=== PATIENT | male | born 1985 | race Caucasian/White ===

== ENCOUNTER 2018-07-30 10:45 | Inpatient (IN) | payer OTHER ==
[2018-07-30 11:16] VITALS: BMI 23.6
--- NOTE | 2018-07-30 16:07 | HP ---
"COWS - Scale Resting Pulse: 0= OK 80 or Below Sweatin= Chills/Flushing Restless Observation: 3= Extraneous Movement Pupil Size: 1= Pupils >than Normal Bone or Joint Aches: 2= Severe Diffuse Aches Runny Nose/ Eye Tearin= Nasal Congestion GI Upset > 30mins: 0= None Tremor Observation: 2= Slight Tremor Visible Yawning Observation: 1= 1-2x During Session Anxiety or Irritability: 1=Feels Anxious/Irritable Goose Flesh Skin: 0=Smooth Skin COWS Score: 12 CIWA Score - Admission Criteria OASAS Guidelines: Admission for Medically Managed Detox: Requires at least one of the followin. CIWA greater than 12 2. Seizures within the past 24 hours 3. Delirium tremens within the past 24 hours 4. Hallucinations within the past 24 hours 5. Acute intervention needed for co occurring medical disorder 6. Acute intervention needed for co occurring psychiatric disorder 7. Severe withdrawal that cannot be handled at a lower level of care (continued vomiting, continued diarrhea, abnormal vital signs) requiring intravenous medication and/or fluids 8. Admission [facility] Allergies/Adverse Reactions: Allergies Allergy/AdvReac Type Severity Reaction Status Date / Time No Known Allergies Allergy Verified 07/30/18 15:48 History of Present Illness: pt here requesting detox from opiate use , reports Vicodin since age 22 , had rx from the dentist for wisdom teeth extraction , then started illicit use of pills( opiates) , then heroin since age 22 , IVDU in [place] , needles from the pharmacy , denies sharing, + re-using sometimes, denies abscess , OD x 2 , most recently 07/27/18 , Narcan by EMS at his home ( lives w/family , mother called 911) , was taken to [facility] , reports use since d/c on the same day , currently attending out pt program in [place] since April 2018 , sent there by parole for drug-related charges , incarcerated x 23 months, on parole until 2020 . Current daily use of heroin : 1 bundle/day , latest use this morning, current symptoms as above . . Reports latest taken Suboxone 1 week ago, has films at home , reports has 1 full box , does not use consistently. detox x 2 , program > 10 , rehab x 4-5 [facility] : 2016 at [facility] , MDD 100 mg q d fentanyl - denies use . tobacco : 1 ppd PMHx : denies PSHX : denies Psych hx : ocd, depression , anxiety . Denies SI / HI Meds : see list . SHx : as above , family supportive of pt's recovery , pt reports he is unemployed . Search Terms: piedad herrera, 1985 Search Date: 07/30/2018 04:09:47 PM The Drug Utilization Report below displays all of the controlled substance prescriptions, if any, that your patient has filled in the last twelve months. The information displayed on this report is compiled from pharmacy submissions to the Department, and accurately reflects the information as submitted by the pharmacies. This report was requested by: Марина Fierro | Reference #: [id number] Others' Prescriptions Patient Name: Piedad Herrera Date: 1985 Address: [address] [place] [address] Sex: Male Rx Written Rx Dispensed Drug Quantity Days Supply Prescriber Name 07/15/2018 07/21/2018 clonazepam 0.5 mg tablet 60 30 [place], [place] 07/15/2018 07/15/2018 suboxone 8 mg-2 mg sl film 60 30 [place], [place]ia 07/01/2018 07/01/2018 suboxone 8 mg-2 mg sl film 28 14 [place], [place]ia 06/24/2018 06/24/2018 clonazepam 0.5 mg tablet 60 30 [place], [place] 06/24/2018 06/24/2018 suboxone 8 mg-2 mg sl film 14 7 [place], [place] 06/17/2018 06/17/2018 suboxone 8 mg-2 mg sl film 14 7 [place], [place] 05/27/2018 05/27/2018 clonazepam 0.5 mg tablet 60 30 [place], [place] 05/04/2018 05/04/2018 hydrocodone-acetaminophen 5-325 mg tablet 12 2 Bryce Negro [facility] - Ebola screening Have you traveled outside of the country in the last 21 days: No Have you had contact with anyone from an Ebola affected area: No Have you been sick,other than usual withdrawal symptoms: No Do you have a fever: No - Review of Systems Constitutional: No Symptoms Reported EENT: reports: No Symptoms Reported Respiratory: reports: No Symptoms reported Cardiac: reports: No Symptoms Reported GI: reports: No Symptoms Reported : reports: No Symptoms Reported Musculoskeletal: reports: No Symptoms Reported Integumentary: reports: No Symptoms Reported Neuro: reports: No Symptoms reported Psychiatric: reports: Orientated x3 Patient History - Patient Medical History Hx Asthma: No Hx Chronic Obstructive Pulmonary Disease (COPD): No Hx Cardiac Disorders: No Hx Hypertension: No Hx Seizures: No Hx Diabetes: No Hx Gastrointestinal Disorders: No Hx Genitourinary Disorders: No Hx Sexually Transmitted Disorders: No Hx Renal Disease (ESRD): No Hx Depression: Yes - Patient Surgical History Past Surgical History: No - PPD History Previous Implant?: Yes Documented Results: Negative w/o proof Implanted On Prior [facility] Admission?: No - Reproductive History Patient : No - Smoking Cessation Smoking history: Current every day smoker Have you smoked in the past 12 months: Yes Aproximately how many cigarettes per day: 20 Hx Chewing Tobacco Use: No Initiated information on smoking cessation: No - Substances Abused Heroin Route: Injection Frequency: Daily Amount used: 1 bundle Age of first use: 22 Date of Last Use: 07/30/18 Family Disease History - Family Disease History Family History: Denies Other Family History: no children Admission Physical Exam BHS - Vital Signs Vital Signs: Vital Signs - 24 hr 07/30/18 11:13 Temperature 98.4 F Pulse Rate 77 Respiratory 18 Rate Blood Pressure 114/66 - Physical General Appearance: Yes: No Apparent Distress HEENTM: Yes: EOMI, Hearing grossly Normal, Normocephalic, Normal Voice Respiratory: Yes: Chest Non-Tender, Lungs Clear, Normal Breath Sounds Neck: Yes: No masses,lesions,Nodules, Trachea in good position Cardiology: Yes: Regular Rhythm, Regular Rate, S1, S2 Abdominal: Yes: Non Tender, Soft Genitourinary: Yes: Within Normal Limits Back: Yes: Normal Inspection Musculoskeletal: Yes: Gait Steady Extremities: Yes: Non-Tender, Tremors Neurological: Yes: Fully Oriented, Alert, Motor Strength 5/5 Integumentary: Yes: Normal Color, Erythema (dorsum of hands , dry sckin w/ small excopriation dorsum of right hand between 2nd and 3rd MC reports OCD and washing hands multiple times throughout the day) - Diagnostic (1) Opiate dependence Current Visit: Yes Status: Acute Qualifiers: Substance use status: uncomplicated Qualified Code(s): F11.20 - Opioid dependence, uncomplicated (2) Nicotine dependence Current Visit: Yes Status: Chronic Qualifiers: Nicotine product type: cigarettes BHS Breath Alcohol Content Breath Alcohol Content: 0 Urine Drug Screen - Results Drug Screen Negative: No Urine Drug Screen Results: OPI-Opiates, FEN-Fentanyl Inpatient Rehab Admission - Rehab Decision to Admit Inpatient rehab admission?: No"
[2018-07-30] MEDS ORDERED: IBUPROFEN 400 MG TABLET (FP) PO PRN (18:29)
[2018-07-30] MEDS ORDERED: MELATONIN 5 MG TABLETS PO PRN (18:29)
[2018-07-30] MEDS ORDERED: METHOCARBAMOL 500 MG TABLET PO PRN (18:29)
[2018-07-30] MEDS ORDERED: MAGNESIUM HYDROX 2400MG/30ML ORAL SUSPENSION 30 ML CUP PO PRN (18:29)
[2018-07-30] MEDS ORDERED: DICYCLOMINE HCL 10 MG CAPSULE PO PRN (18:29)
[2018-07-30] MEDS ORDERED: NICOTINE POLACRILEX 2 MG GUM BUC PRN (18:29)
[2018-07-30] MEDS ORDERED: MAGNESIUM CITRATE 300 ML BOTTLE PO PRN (18:29)
[2018-07-30] MEDS ORDERED: ACETAMINOPHEN 325 MG TABLET (FP) PO PRN ×2 (18:29)
[2018-07-30] MEDS ORDERED: MENTHOL/PHENOL 1 EACH UD MM PRN (18:29)
[2018-07-30] MEDS ORDERED: MAG HYDROX/AL HYDROX/SIMETH 30 ML UNIT-DOSE CUP PO PRN (18:29)
[2018-07-30] MEDS ORDERED: cloNIDine HCL 0.1 MG TABLET PO PRN (18:29)
[2018-07-30] MEDS: THIAMINE HCL 100 MG TABLET (FP) PO SCH (22:30)
[2018-07-30] MEDS ORDERED: METHADONE HCL 10 MG TABLET (FOR DETOX USE ONLY) PO ONE (23:00)
[2018-07-31] MEDS ORDERED: METHADONE HCL 5 MG TABLET (FOR DETOX USE ONLY) PO ONE (10:00)
[2018-07-31] MEDS: PRENATAL VITAMINS W/ FOLIC ACID TABLET (FP) PO SCH (10:32)
[2018-07-31 11:26] LABS: HEMATOCRIT 42.7 % (35.4-49); HEMOGLOBIN 15.1 GM/dL (11.7-16.9); MCHC 35.3 g/dl (32.0-35.9); MEAN CELL VOLUME 85.2 fl (80-96); MEAN PLT VOLUME 8.6 fl (7.5-11.1); PLATELET COUNT 288 K/MM3 (134-434); RBC 5.01 M/mm3 (4.00-5.60); RDW 13.9 % (11.9-15.9)
[2018-07-31 11:55] LABS: ALBUMIN 3.8 g/dl (3.4-5.0); ALK PHOS 95 U/L (45-117); ANION GAP 7 MMOL/L (8-16); BILIRUBIN,TOTAL 0.4 mg/dL (0.2-1); BLOOD UREA NITROGEN 10 mg/dL (7-18); CALCIUM 9.1 mg/dL (8.5-10.1); CHLORIDE 106 mmol/L (98-107); CO2 27 mmol/L (21-32); CREATININE 0.7 mg/dL (0.55-1.3); GLUCOSE,RANDOM 93 mg/dL (74-106); POTASSIUM 4.4 mmol/L (3.5-5.1); SGOT/AST 10 U/L (15-37); SGPT/ALT 19 U/L (13-61); SODIUM 140 mmol/L (136-145); TOT PROT 6.8 g/dl (6.4-8.2)
--- NOTE | 2018-07-31 12:25 | PN ---
S COWS - Scale Resting Pulse: 0= OK 80 or Below Sweatin= Chills/Flushing Restless Observation: 1= Difficult to Sit Still Pupil Size: 1= Pupils >than Normal Bone or Joint Aches: 2= Severe Diffuse Aches Runny Nose/ Eye Tearin= Runny Nose/Eyes GI Upset > 30mins: 2= Nausea/Diarrhea Tremor Observation of Outstretched Hands: 2= Slight Tremor Visible Yawning Observation: 1= 1-2x During Session Anxiety or Irritability: 2=Irritable/Anxious Goose Flesh Skin: 0=Smooth Skin COWS Score: 14 S Progress Note (SOAP) Subjective: alert,irritable,anxious,interrupted sleep,tremor,pain in the body and back Objective: 07/31/18 12:24 Vital Signs Temperature 97.9 F 07/31/18 09:35 Pulse Rate 77 07/31/18 09:35 Respiratory Rate 18 07/31/18 09:35 Blood Pressure 126/60 07/31/18 09:35 O2 Sat by Pulse Oximetry (%) Laboratory Last Values WBC 5.0 K/mm3 (4.0-10.0) 07/31/18 07:00 RBC 5.01 M/mm3 (4.00-5.60) 07/31/18 07:00 Hgb 15.1 GM/dL (11.7-16.9) 07/31/18 07:00 Hct 42.7 % (35.4-49) 07/31/18 07:00 MCV 85.2 fl (80-96) 07/31/18 07:00 MCH 30.0 pg (25.7-33.7) 07/31/18 07:00 MCHC 35.3 g/dl (32.0-35.9) 07/31/18 07:00 RDW 13.9 % (11.9-15.9) 07/31/18 07:00 Plt Count 288 K/MM3 (134-434) 07/31/18 07:00 MPV 8.6 fl (7.5-11.1) 07/31/18 07:00 Sodium 140 mmol/L (136-145) 07/31/18 07:00 Potassium 4.4 mmol/L (3.5-5.1) 07/31/18 07:00 Chloride 106 mmol/L (98-107) 07/31/18 07:00 Carbon Dioxide 27 mmol/L (21-32) 07/31/18 07:00 Anion Gap 7 MMOL/L (8-16) L 07/31/18 07:00 BUN 10 mg/dL (7-18) 07/31/18 07:00 Creatinine 0.7 mg/dL (0.55-1.3) 07/31/18 07:00 Creat Clearance w eGFR 132.41 (>60) 07/31/18 07:00 Random Glucose 93 mg/dL (74-106) 07/31/18 07:00 Calcium 9.1 mg/dL (8.5-10.1) 07/31/18 07:00 Total Bilirubin 0.4 mg/dL (0.2-1) 07/31/18 07:00 AST 10 U/L (15-37) L 07/31/18 07:00 ALT 19 U/L (13-61) 07/31/18 07:00 Alkaline Phosphatase 95 U/L (45-117) 07/31/18 07:00 Total Protein 6.8 g/dl (6.4-8.2) 07/31/18 07:00 Albumin 3.8 g/dl (3.4-5.0) 07/31/18 07:00 RPR Titer Nonreactive (NONREACTIVE) 07/31/18 07:00 HIV 1&2 Antibody Screen Negative 07/31/18 07:00 HIV P24 Antigen Negative 07/31/18 07:00 Assessment: 07/31/18 12:24 withdrawal symptom Plan: continue detox
[2018-07-31] MEDS: THIAMINE HCL 100 MG TABLET (FP) PO SCH (22:45)
[2018-08-01] MEDS ORDERED: METHADONE HCL 10 MG TABLET (FOR DETOX USE ONLY) PO ONE (10:00)
[2018-08-01] MEDS: PRENATAL VITAMINS W/ FOLIC ACID TABLET (FP) PO SCH (11:25)
--- NOTE | 2018-08-01 13:00 | PN ---
BHS COWS - Scale Resting Pulse: 0= NC 80 or Below Sweatin=Flushed/Facial Moisture Restless Observation: 0= Sits Still Pupil Size: 0= Normal to Room Light Bone or Joint Aches: 2= Severe Diffuse Aches Runny Nose/ Eye Tearin= Nasal Congestion GI Upset > 30mins: 0= None Tremor Observation of Outstretched Hands: 2= Slight Tremor Visible Yawning Observation: 1= 1-2x During Session Anxiety or Irritability: 2=Irritable/Anxious Goose Flesh Skin: 0=Smooth Skin COWS Score: 10 [facility] Progress Note (SOAP) Subjective: shakes sweats low back pain Objective: 08/01/18 12:58 A & O x 3 IN bed no acute distress noted Vital Signs Temperature 98.3 F 08/01/18 09:15 Pulse Rate 70 08/01/18 09:15 Respiratory Rate 16 08/01/18 09:15 Blood Pressure 110/62 08/01/18 09:15 O2 Sat by Pulse Oximetry (%) Assessment: 08/01/18 12:59 withdrawal sx low back pain Plan: continue detox Lidocaine patch for low back pain
[2018-08-01] MEDS: LIDOCAINE 5% TOPICAL PATCH TP SCH (14:48)
[2018-08-01] MEDS ORDERED: hydrOXYzine PAMOATE 25 MG CAPSULE (FP) PO PRN (19:00)
[2018-08-01] MEDS: THIAMINE HCL 100 MG TABLET (FP) PO SCH (21:52)
[2018-08-01] MEDS: LIDOCAINE PATCH REMOVAL MC SCH (21:52)
[2018-08-02] MEDS ORDERED: METHADONE HCL 5 MG TABLET (FOR DETOX USE ONLY) PO ONE (06:00)
[2018-08-02] MEDS: PRENATAL VITAMINS W/ FOLIC ACID TABLET (FP) PO SCH (10:10)
[2018-08-02] MEDS: LIDOCAINE 5% TOPICAL PATCH TP SCH (10:10)
--- NOTE | 2018-08-02 12:28 | PN ---
S Progress Note (SOAP) Subjective: Body aches, tremor, nausea, sweating, headache, interrupted sleep, constipation x 2 days (instructed to request medication for constipation from RN). Objective: 08/02/18 12:27 Last Vital Signs Temp Pulse Resp BP Pulse Ox 97.9 F 60 18 111/54 L 08/02/18 10:00 08/02/18 10:00 08/02/18 10:00 08/02/18 10:00 Laboratory Tests 07/31/18 07/31/18 07/31/18 07:00 07:00 07:00 WBC 5.0 RBC 5.01 Hgb 15.1 Hct 42.7 MCV 85.2 MCH 30.0 MCHC 35.3 RDW 13.9 Plt Count 288 MPV 8.6 Sodium 140 Potassium 4.4 Chloride 106 Carbon Dioxide 27 Anion Gap 7 L BUN 10 Creatinine 0.7 Creat Clearance w eGFR 132.41 Random Glucose 93 Calcium 9.1 Total Bilirubin 0.4 AST 10 L ALT 19 Alkaline Phosphatase 95 Total Protein 6.8 Albumin 3.8 RPR Titer HIV 1&2 Antibody Screen Negative HIV P24 Antigen Negative 07/31/18 07:00 WBC RBC Hgb Hct MCV MCH MCHC RDW Plt Count MPV Sodium Potassium Chloride Carbon Dioxide Anion Gap BUN Creatinine Creat Clearance w eGFR Random Glucose Calcium Total Bilirubin AST ALT Alkaline Phosphatase Total Protein Albumin RPR Titer Nonreactive HIV 1&2 Antibody Screen HIV P24 Antigen Labs reviewed Assessment: 08/02/18 12:28 Withdrawal symptoms Plan: Continue detox Encouraged PO water hydration
[2018-08-02] MEDS: LIDOCAINE PATCH REMOVAL MC SCH (23:07)
[2018-08-02] MEDS: THIAMINE HCL 100 MG TABLET (FP) PO SCH (23:08)
[2018-08-03 09:25] VITALS: BP 103/71; PULSE 86; TEMP 97.1
--- NOTE | 2018-08-03 21:08 | DS ---
[facility] Detox Discharge Summary Admission Date: 07/30/18 Discharge Date: 08/03/18 - History Present History: Opioid Dependence Additional Comments: PATIENT GOING TO [facility] ([place], [place]) FOR AFTERCARE. PATIENT REPORTS THAT HE HAS SOME OF SUPPLY OF PRESCRIBED SUBOXONE AT HOME, ALTHOUGH HE HAD NOT TAKEN IT FOR APPROX. THE LAST TWO WEEKS PRIOR TO THIS DETOX ADMISSION. PATIENT IS HERE FOR DETOX FROM OPIATES (HEROIN). PATIENT ADVISED TO CONSULT PRESCRIBING MEDICAL PROVIDER (AT ' [facility], [place]) AFTER DISCHARGE FROM DETOX UNIT PRIOR TO RESUMING TAKING SUBOXONE. PATIENT VERBALIZED UNDERSTANDING OF RECOMMENDATION. PATIENT WAS DISCHARGED FROM DETOX UNIT IN STABLE MEDICAL CONDITION. Pertinent Past History: Nicotine Dependence, History of Depression. - Physical Exam Results Vital Signs: Vital Signs Temperature 97.1 F L 08/03/18 09:24 Pulse Rate 86 08/03/18 09:24 Respiratory Rate 16 08/03/18 09:24 Blood Pressure 103/71 08/03/18 09:24 O2 Sat by Pulse Oximetry (%) Pertinent Admission Physical Exam Findings: WITHDRAWAL SYMPTOMS. Laboratory Tests 07/31/18 07/31/18 07/31/18 07:00 07:00 07:00 WBC 5.0 RBC 5.01 Hgb 15.1 Hct 42.7 MCV 85.2 MCH 30.0 MCHC 35.3 RDW 13.9 Plt Count 288 MPV 8.6 Sodium 140 Potassium 4.4 Chloride 106 Carbon Dioxide 27 Anion Gap 7 L BUN 10 Creatinine 0.7 Creat Clearance w eGFR 132.41 Random Glucose 93 Calcium 9.1 Total Bilirubin 0.4 AST 10 L ALT 19 Alkaline Phosphatase 95 Total Protein 6.8 Albumin 3.8 RPR Titer HIV 1&2 Antibody Screen Negative HIV P24 Antigen Negative 07/31/18 07:00 WBC RBC Hgb Hct MCV MCH MCHC RDW Plt Count MPV Sodium Potassium Chloride Carbon Dioxide Anion Gap BUN Creatinine Creat Clearance w eGFR Random Glucose Calcium Total Bilirubin AST ALT Alkaline Phosphatase Total Protein Albumin RPR Titer Nonreactive HIV 1&2 Antibody Screen HIV P24 Antigen LABS NOTED. - Treatment Hospital Course: Detox Protocol Followed, Detoxed Safely, Responded well, Discharged Condition Good Patient has Accepted a Rehab Referral to: PT. TO ATTEND [facility] ([place], [place]) - Medication Discharge Medications: Ambulatory Orders NK [No Known Home Medication] 07/30/18 - Diagnosis (1) Opiate dependence Status: Acute Qualifiers: Substance use status: uncomplicated Qualified Code(s): F11.20 - Opioid dependence, uncomplicated (2) Nicotine dependence Status: Chronic Qualifiers: Nicotine product type: cigarettes Substance use status: uncomplicated Qualified Code(s): F17.210 - Nicotine dependence, cigarettes, uncomplicated - AMA Did Patient Leave Against Medical Advice: No
== END 2018-08-03 11:35 | disposition home or self-care (01) | DRG 773 ==
LOC: YASAS 10:45 → Y6N 19:00
PROVIDERS: ADMIT Surgery; ATTEND Surgery
PROC: HZ2ZZZZ Detoxification Services for Substance Abuse Treatment (ICD-10-PCS; principal; 2018-07-30)
DX: F11.23 Opioid dependence with withdrawal (principal); F17.210 Nicotine dependence, cigarettes, uncomplicated; M54.5 Low back pain
CPT/HCPCS: 36415; 80053; 85027; 86593; 87389; J0735